=== PATIENT | female | born 1945 | race African-American/Black ===

== ENCOUNTER 2021-12-11 08:15 | Day surgery (SDC) | payer MEDICARE, BC ==
[2021-12-08 10:49] VITALS: BMI 31.8
[~2021-12-11 08:15] MED LIST: Fentanyl 100 MCG/2 ML VIAL ONE; Fluorouracil 100 MG, EPINEPHrine 0.3 MG in Ophthalmic Irrigation Solution 500 ML IRR SCH; Midazolam HCl 2 mg/2 ml Vial ONE
[2021-12-11] MEDS ORDERED: Phenylephrine 2.5% Ophth Soln 5 ML BOT ONE (08:54)
[2021-12-11] MEDS ORDERED: Cyclopentolate 1% Opth Drop 2 ML BOT ONE (08:54)
[2021-12-11] MEDS ORDERED: Maxitrol 0.1% Opth Oint 3.5 GM TUBE ONE (10:18)
[2021-12-11] MEDS ORDERED: Bupivacaine 0.75% 10 ML VIAL ONE (10:18)
[2021-12-11] MEDS ORDERED: CEFAZOLIN 1 GM VIAL ONE (10:18)
[2021-12-11] MEDS ORDERED: Triamcinolone 40 MG/ML VIAL ONE (10:18)
[2021-12-11] MEDS ORDERED: Lidocaine 4% PF 5 ML AMP ONE (10:18)
[2021-12-11] MEDS ORDERED: Lidocaine 1% PF 5 ML VIAL ONE (10:18)
[2021-12-11] MEDS ORDERED: Acetaminophen 500 MG TAB ONE (11:47)
== END 2021-12-11 11:59 | disposition home or self-care (01) ==
LOC: SDC 08:15
PROVIDERS: ATTEND Ophthalmology Retina Specialist
PROC: 08T53ZZ Resection of Left Vitreous, Percutaneous Approach (ICD-10-PCS; principal; 2021-12-11)
PROC: 08QF3ZZ Repair Left Retina, Percutaneous Approach (ICD-10-PCS; 2021-12-11)
PROC: 08NF3ZZ Release Left Retina, Percutaneous Approach (ICD-10-PCS; 2021-12-11)
DX: H43.12 Vitreous hemorrhage, left eye (principal); E78.5 Hyperlipidemia, unspecified; I48.91 Unspecified atrial fibrillation; I13.0 Hypertensive heart and chronic kidney disease with heart failure and stage 1 through stage 4 chronic kidney disease, or unspecified chronic kidney disease; E11.22 Type 2 diabetes mellitus with diabetic chronic kidney disease; N18.9 Chronic kidney disease, unspecified; I50.9 Heart failure, unspecified; Z86.711 Personal history of pulmonary embolism; Z79.01 Long term (current) use of anticoagulants; Z79.4 Long term (current) use of insulin; Z79.899 Other long term (current) drug therapy
CPT/HCPCS: 36416; J0171; J0690; J2250; J3010; J3301; J3490; J9190